=== PATIENT | female | born 2000 | race Caucasian/White ===

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

== ENCOUNTER 2019-04-02 19:16 | Emergency (ER) | payer MEDICAID ==
[~2019-04-02] VITALS: Ht 152.4 cm; Wt 52.0 kg
[2019-04-02 19:28] VITALS: BP 147/95
[2019-04-02] MEDS ORDERED: PRED20TA PO (20:43)
== END 2019-04-02 21:08 | disposition home or self-care (01) ==
LOC: ER 19:18
DX: G51.0 Bell's palsy (principal); Z79.899 Other long term (current) drug therapy
CPT/HCPCS: 99283

== ENCOUNTER 2020-04-08 13:46 | Emergency (ER) | payer MEDICAID ==
[~2020-04-08] VITALS: Ht 152.4 cm; Wt 53.5 kg
[2020-04-08] MEDS ORDERED: ibuprofen 200mg tablet PO ONE (14:35)
--- NOTE | 2020-04-08 14:43 | NUR ---
US at bedside.
[2020-04-08] MEDS ORDERED: IBUP-1985 PO (15:24)
[2020-04-08 15:42] VITALS: BP 113/84
== END 2020-04-08 15:34 | disposition home or self-care (01) ==
LOC: ER 13:46
DX: R07.2 Precordial pain (principal); M79.662 Pain in left lower leg; F12.90 Cannabis use, unspecified, uncomplicated; G43.909 Migraine, unspecified, not intractable, without status migrainosus; Z79.899 Other long term (current) drug therapy
CPT/HCPCS: 71046; 93005; 93970; 99284

== ENCOUNTER 2020-10-10 15:46 | Emergency (ER) | payer MEDICAID ==
[~2020-10-10] VITALS: Ht 152.4 cm; Wt 54.2 kg
[~2020-10-10 15:46] MED LIST changes: +IBUP-1985 PO
[2020-10-10 15:49] VITALS: BP 175/105
[2020-10-10 16:14] LABS: CLARITY,URINE CLEAR (Clear); COLOR,URINE ORANGE (Yellow)
[2020-10-10 16:21] LABS: URINE HCG NEGATIVE (NEG)
[2020-10-10 16:26] LABS: UA COLLECTION TYPE CLN CATCH MIDSTREAM
[2020-10-10 16:29] LABS: BASOPHILS % (AUTO) 0.2 % (0-1); EOSINOPHILS % (AUTO) 0.2 % (0-6); HEMATOCRIT 37.6 % (35.0-45.0); HEMOGLOBIN 12.4 g/dl (12.0-16.0); LYMPHOCYTES # (AUTO) 1.7 X10'3 (1.1-4.8); LYMPHOCYTES % (AUTO) 13.5 % (21-51); MEAN CORPUSCULAR HEMOGLOBIN 28.5 PG (27.0-31.0); MEAN CORPUSCULAR VOLUME 86.5 FL (78-98); MEAN PLATELET VOLUME 9.9 FL (7.4-10.4); MONOCYTES # (AUTO) 0.9 X10'3 (0-0.9); NEUTROPHILS # (AUTO) 10.1 X10'3 (1.8-7.7); NEUTROPHILS % (AUTO) 79.1 % (42-75); PLATELET COUNT 197 X10'3 (140-440); RED BLOOD COUNT 4.35 X10'6 (4.20-5.60); RED CELL DISTRIBUTION WIDTH 13.2 % (11.5-14.5); WHITE BLOOD COUNT 12.8 X10'3 (4.5-11.0)
[2020-10-10 16:30] LABS: SQUAMOUS EPITHELIAL CELL,UR FEW /LPF (FEW); TRANSITIONAL EPI CELLS,URINE FEW /HPF
[2020-10-10 16:31] LABS: BACTERIA,URINE FEW /HPF (Neg)
[2020-10-10 16:36] LABS: ALANINE AMINOTRANSFERASE 22 U/L (12-78); ALBUMIN 3.7 G/DL (3.4-5.0); ALBUMIN/GLOBULIN RATIO 0.9 (1.1-1.5); ALKALINE PHOSPHATASE 80 IU/L (20-180); ANION GAP 13 (8-16); ASPARTATE AMINO TRANSFERASE 21 U/L (10-37); BILIRUBIN,TOTAL 0.3 MG/DL (0.1-1.0); BLOOD UREA NITROGEN 8 MG/DL (7-18); CALCIUM 8.2 MG/DL (8.5-10.1); CHLORIDE 104 MMOL/L (99-107); GLUCOSE 90 MG/DL (70-104); LIPASE 76 U/L (73-393); POTASSIUM 3.7 MMOL/L (3.5-5.1); SODIUM 140 MMOL/L (135-145); TOTAL CARBON DIOXIDE 23.4 MMOL/L (24-32); TOTAL PROTEIN 7.7 G/DL (6.4-8.2); eGFR > 90 ML/MIN
[2020-10-10] MEDS ORDERED: DOXYCYCLINE 100MG CAPSULE PO STA (19:51)
[2020-10-10] MEDS ORDERED: DOXY-411 PO (19:53)
[2020-10-10] MEDS ORDERED: ondansetron 4mg rapidly disintigrating tab PO ONE (19:55)
[2020-10-10] MEDS ORDERED: HYDROcodone/acetaminophen 5mg/325mg tablet PO ONE (19:55)
== END 2020-10-10 20:16 | disposition home or self-care (01) ==
LOC: ER 15:46
DX: R10.84 Generalized abdominal pain (principal); R30.0 Dysuria; G43.909 Migraine, unspecified, not intractable, without status migrainosus; F12.90 Cannabis use, unspecified, uncomplicated; Z79.2 Long term (current) use of antibiotics; Z79.899 Other long term (current) drug therapy
CPT/HCPCS: 36415; 80053; 81001; 81025; 83690; 85025; 87077; 87088; 87186; 99284